=== PATIENT | male | born 1960 | race Caucasian/White ===

== ENCOUNTER → 2021-04-09 | Day surgery (SDC) | payer OTHER ==
[~2021-04-09] MED LIST: ASPIRIN81 MG PO; BUSPIRONE HCL10 MG PO; FINASTERIDE5 MG PO; FLOMAX0.4 MG PO; PANTOPRAZOLE SO40 MG PO; TESTOSTERO100 MG/1 M INJ; VIT D3 PO; [UNRECOGNIZED DRUG - OTHER] PO
[2021-04-09 15:51] VITALS: BP 109/50
== END | disposition home or self-care (01) ==
LOC: OR 10:53
PROVIDERS: ATTEND Internal Medicine Gastroenterology
DX: K44.9 Diaphragmatic hernia without obstruction or gangrene (principal); K29.70 Gastritis, unspecified, without bleeding; K29.80 Duodenitis without bleeding; K20.90 Esophagitis, unspecified without bleeding; K21.9 Gastro-esophageal reflux disease without esophagitis; K76.0 Fatty (change of) liver, not elsewhere classified; E66.01 Morbid (severe) obesity due to excess calories; F32.9 Major depressive disorder, single episode, unspecified; F17.210 Nicotine dependence, cigarettes, uncomplicated; Z01.810 Encounter for preprocedural cardiovascular examination; Z01.812 Encounter for preprocedural laboratory examination; Z20.822 Contact with and (suspected) exposure to COVID-19; Z79.82 Long term (current) use of aspirin; Z68.39 Body mass index [BMI] 39.0-39.9, adult; Z86.010 Personal history of colon polyps
CPT/HCPCS: 43239; 93005; C9113; U0002